=== PATIENT | male | born 1960 | race Caucasian/White ===

== ENCOUNTER 2022-06-03 01:15 | Day surgery (SDC) | payer BC, SELFPAY ==
[2022-05-27 08:29] VITALS: BMI 34.7
--- NOTE | 2022-05-27 08:33 | PC.NURSE ---
Report to the Outpatient Waiting Room, entrance under the green pavilion located off [facility], at time 0700 on date 06/03/22. Planned Procedure Time: 0900. Time changes happen often and if your time is changed the preop area will call you the afternoon before. - You and your visitor will be asked to self-screen and do not enter if you have any COVID symptoms. - We encourage only one visitor and NO visitors under age 16 are allowed at this time. Your visitor will receive communication by the phone number that is given day of service. - The patient visitor is requested to social distance or may leave the building when not with patient due to restrictions. - A mask is OPTIONAL within the hospital. Patients may have clear liquids (water, carbonated beverages, clear teas, apple juice) until 3 hours prior to surgery with a maximum of 20 ounces. - No food from midnight until time of surgery Take the following medications with a SIP of water the morning of surgery: METOPROLOL, EYE DROPS Medications to discontinue per physician: N/A Date to take last dose: N/A Please no make-up, nail burkinan, hairspray, perfume, deodorant, or body powder the day of surgery. No jewelry (including any body piercings) or valuables the day of surgery, leave them at home. Please take a shower or bath the night before, or the morning of, surgery with an antibacterial soap. Wear comfortable, loose fitting clothing. - Jewelry must be removed prior to entering the operating room. Rings and piercings that are not removed may be cut off. - The hospital will not accept responsibility for valuables. - Please leave all valuables, including medications, at home the day of surgery. If you are going home after surgery, a licensed special client bus driver must drive you home. - NO public transportation without another adult. - We recommend that an adult stay with you for 24 hours following discharge. - We also recommend that you do not drive, make important decision, drink alcoholic beverages, or take any drugs that were not prescribed by your health care provider for at least 24 hours after your discharge time. Follow any additional instructions given to you from your surgeon. If you or anyone in your household have experienced Covid symptoms in the past week, please notify your surgeon or the nurse liaison at the phone number below for possible testing. Telephone instructions given to PT Roro MOON LIST and asked if any additional questions and then verbalized understanding. Patient advised to call surgeon office or pre surgery nurse liaison [phone] if any additional questions.
--- NOTE | 2022-06-02 13:04 | WPDANESEPPF ---
Anes - Initial Pre Proc Eval Procedure: Operation Date: 06/03/22 09:00 Proposed Procedures p Excision of Back Mass - Alexei Sanchez DO Date/Time: 06/02/22 13:04 Surgeon: Alexei Sanchez DO Pre Op Diagnosis: Back Mass 6 cm Patient Data Age: 62 Gender: M Height: 1.73 m Weight: 103.42 kg Allergies Allergy/AdvReac Type Severity Reaction Status Date / Time [id number]-[id number] Reductase AdvReac Muscle Pain Verified 06/03/22 07:09 Inhibitor tramadol [From Ultram] AdvReac Dizziness Verified 06/03/22 07:09 Home Medications Medication Instructions Recorded Confirmed Type aspirin 81 mg capsule 81 mg PO DAILY 05/14/22 06/03/22 History metoprolol succinate 50 mg 50 mg PO DAILY 05/14/22 06/03/22 History tablet,extended release 24 hr prednisolone acetate 1 % eye 1 drp EACH EYE QID 05/27/22 06/03/22 History drops,suspension acetaminophen 300 mg-codeine 30 mg 1 tablet PO QID PRN Pain 06/03/22 06/03/22 History tablet Patient hx anesthesia problems: none Family hx anesthesia problems: none Results Review: All pre-operative results and documents have been reviewed as part of the pre-operative evaluation. [facility] Past Medical History Medical History (Updated 06/02/22 @ 13:04 by Brain Holland MD) Hypertension Obesity Surgical History Surgical History H/O cataract extraction H/O detached retina repair left History of back surgery x2 Family History Family History Father , age 72 Heart disease Hypertension Diabetes mellitus Mother Hypertension Sibling Heart disease Hypertension Social History Social History Smoking status: Never smoker Alcohol intake: current Drinks per week: 3 Alcohol use details: social Substance use: never Substance use type: does not use Living arrangements: with family Additional occupation/education comments: [employer] Spiritual care concerns: No Anes - Eval Final PreProcedure Day of Procedure 06/02/22 13:04 Patient weight: obese Heart: regular rate and rhythm Lungs: clear to auscultation and normal air movement Airway: Mallampati scale class II Neurological: alert and oriented Last oral intake: >/= 8 hours ASA classification: III Emergent: no Anesthetic plan: proceed Anesthesia type and monitoring: general GIVS Results Review: All pre-operative results and documents have been reviewed as part of the pre-operative evaluation. Informed Consent: The patient's anesthetic plan and its attendant risks and benefits were discussed with the patient/family/POA. Questions were solicited and answers provided to the satisfaction of the patient/family/POA.
[2022-06-03 07:10] VITALS: BP 147/89; PULSE 58; RESP 16; TEMP 36.1; O2SAT 100
[2022-06-03] MEDS: LACTATED RINGERS 1,000 ML 30 ML IV CONT (07:37)
--- NOTE | 2022-06-03 08:24 | WPDHPUPDATE1 ---
History and Physical Update Update Date/Time: 06/03/22 08:24 History and Physical has been reviewed, including an updated exam of the patient. There are NO changes in the patient's condition. Risks, benefits, and alternatives have been discussed and questions answered. Patient agrees to proceed with procedure.
[2022-06-03] MEDS: ceFAZolin 2 GM/D5W 50 ML 2 GM/50 ML BAG IVPB (08:41)
--- NOTE | 2022-06-03 09:40 | W.PM.PROC2 ---
Procedure Note - Detailed Date of Procedure 06/03/22 Pre-op Diagnosis Back Mass 6 cm Post-op Diagnosis Same Procedure Performed Excision 6 cm mid back mass Surgeon Alexei Sanchez, DO Anesthesia MAC and Local (0.25% bupivacaine with epinephrine) Indications This is a 62-year-old man presented with an enlarging back mass in his mid back region. He noticed this a couple years ago and it has gradually increased in size since then. He does have some discomfort when leaning up against a hard surface. A 6 cm back mass was identified on exam that consistent with lipoma. Discussions were made with the patient about treatment options and decision was made to proceed with excision of 6 cm back mass. Findings The 6 cm back mass was completely excised. The mass had appearance consistent with a lipoma. No other abnormalities were identified. The mass was completely excised and sent to the lab for pathology. Description of Procedure Procedure as well as risks, benefits, and alternatives were discussed with the patient. Written consent was obtained and placed in chart prior to procedure. Patient was brought back to surgical suite. He was placed in right lateral decubitus position on the operating table. Time-out was done to confirm patient and procedure. IV sedation was then administered by the anesthesia department. His back area was prepped and draped in sterile fashion using chlorhexidine prep. 0.25% bupivacaine with epinephrine was infiltrated locally around the mass. A 6 cm transverse incision was then made directly over the mass using a 15 blade scalpel. Electrocautery was used for hemostasis and for dissection through the subcutaneous tissue. Mass was identified and carefully dissected free from the surrounding subcutaneous attachments using electrocautery. Mass was completely excised and sent to the lab for pathology. The wound bed was then inspected. Hemostasis appeared adequate and no other masses were identified. The skin edges were then reapproximated using 3-0 nylon vertical mattress interrupted sutures. Bacitracin ointment was then applied followed by 4 x 4 gauze and Medipore tape. Estimated Blood Loss 5 Pathology Yes (Back mass) Complications No immediate complications Condition Stable Disposition Same day [facility] Billing Surgery - Charge Forward: Surgery Billing
[2022-06-03 09:42] VITALS: BP 97/68; PULSE 62; RESP 14; TEMP 36.4; O2SAT 96
[2022-06-03 10:05] VITALS: BP 148/87; PULSE 54; RESP 14; O2SAT 97
[2022-06-03 10:25] VITALS: BP 147/88; PULSE 55; RESP 16
== END 2022-06-03 10:26 | disposition home or self-care (01) ==
PROVIDERS: PCP Family Medicine; Visit Provider Surgery
PROC: (CPT 21931; principal; 2022-06-03 09:00)
DX: D17.1 Benign lipomatous neoplasm of skin and subcutaneous tissue of trunk (principal); I10 Essential (primary) hypertension; Z79.82 Long term (current) use of aspirin; E66.9 Obesity, unspecified; Z68.33 Body mass index [BMI] 33.0-33.9, adult
CPT/HCPCS: 21931; 88304; A9270; J0690; J1100; J2250; J2370; J2405; J2704; J3010; J7120